=== PATIENT | female | born 1980 | race Caucasian/White ===

== ENCOUNTER → 2016-06-11 | Outpatient (CLI) | payer SELFPAY ==
--- NOTE | 2016-06-11 19:52 | DI ---
XR WRIST COMPLETE MIN 3VW,06/11/2016 11:48 AM: Clinical History: Pain in the left. Previous Exam: None at this facility. Findings: 3 views of the left wrist are obtained, and demonstrate anatomic alignment without fractures. The maria ines rounding soft tissues are unremarkable. Impression: Normal left hand and wrist.
== END ==
LOC: RAD 11:40
PROVIDERS: ATTEND Obstetrics & Gynecology Gynecology
DX: M79.645 Pain in left finger(s) (principal)
CPT/HCPCS: 73110

== ENCOUNTER 2016-08-28 15:55 | Emergency (ER) | payer SELFPAY ==
[2016-08-28 16:59] LABS: BLOOD UREA NITROGEN 6 mg/dL (7-22); CALCIUM 9.7 mg/dL (8.7-10.7); EST GLOMERULAR FILTRATION > 60 (>60 ml/min/1.73m(2)); SERUM ALBUMIN 4.4 g/dL (3.5-4.8)
[2016-08-28 17:02] LABS: BASOPHILS # (AUTO) 0.04 10*3/UL; BASOPHILS % (AUTO) 0.5 % (0-1); EOSINOPHILS % (AUTO) 1.1 % (0-8); HEMATOCRIT 48.9 % (37.0-47.0); HEMOGLOBIN 16.8 g/dL (12.0-16.0); LYMPHOCYTES # (AUTO) 2.06 10*3/uL; MEAN CORPUSCULAR HEMOGLOBIN 33.5 PG (27-31); MEAN CORPUSCULAR HGB CONC 34.4 g/dL (33-37); MEAN CORPUSCULAR VOLUME 97.4 FL (81-99); MEAN PLATELET VOLUME 10.4 FL (7.4-12.2); MONOCYTES # (AUTO) 0.94 10*3/UL (0.3-0.8); MONOCYTES % (AUTO) 10.6 % (5-15); NEUTROPHILS % (AUTO) 64.3 % (50-80); RED BLOOD COUNT 5.02 10^6/uL (4.20-5.40)
[2016-08-28 17:17] LABS: SALICYLATE < 1.0 mg/dl (0-20)
[2016-08-28 17:21] LABS: PLATELET MORPHOLOGY COMMENT NORMAL MORPHOLOGY (NORM); RBC MORPHOLOGY COMMENT NORMAL MORPHOLOGY (NORM); WBC MORPHOLOGY COMMENT NORMAL MORPHOLOGY (NORM)
[2016-08-28 17:24] LABS: BILIRUBIN,URINE NEGATIVE (NEG); COLOR,URINE YELLOW; GLUCOSE, URINE (UA) NEGATIVE (NEG); NITRATE,URINE NEGATIVE (NEG); OCCULT BLOOD,URINE NEGATIVE (NEG); PROTEIN,URINE NEGATIVE (NEG); UROBILINOGEN,URINE 0.2 EU/dL (0.2)
[2016-08-28 17:27] LABS: CLARITY,URINE CLEAR (CLEAR); URINE SAMPLE TYPE CLEAN CATCH URINE; URINE SPECIFIC GRAVITY - MAN 1.003
[2016-08-28 17:33] LABS: HCG,QUANTITATIVE < 2.39 mIU/ML
[2016-08-28 17:35] LABS: AMPHETAMINE SCREEN NEGATIVE (NEG); CANNABINOID SCREEN,URINE POSITIVE (NEG); COCAINE SCREEN NEGATIVE (NEG); METHADONE URINE SCREEN NEGATIVE (NEG); METHAMPHETAMINES SCREEN,URINE NEGATIVE (NEG); OPIATE SCREEN,URINE NEGATIVE (NEG)
--- NOTE | 2016-08-28 17:37 | PDOC ---
Psych/Suicidal/OD HPI - General Chief Complaint: Suicidal Ideation / Attempt Stated Complaint: suicidal ideation Date Seen by Provider: 08/28/16 Time Seen by Provider: 16:15 Source: POSITIVE: Patient, RN/MD ([facility] counselor) Exam Limitations: POSITIVE: No limitations Nurse's Notes Reviewed & Considered: Yes - History of Present Illness Initial Comments: The patient is a 36-year-old female who is brought to the emergency room in the custody of a mounted police officer and is also accompanied by her counselor at [facility]. The patient states that she has lately been very "fearful" . She moved out of her residence and moved in with her parents because she did not feel safe living in her own house; she cannot exactly clear identify the source of her fever. She states she has been feeling progressively suicidal for the past 2 weeks. She states that she had considered driving her car off [place]. She was seen by her counselor at [facility]. Counselor called the police and the police brought the patient here to the emergency room. The counselor also accompanied the patient. Patient has a history of severe anxiety , depression and suicidal ideation. She was taking clonazepam 1 mg 3 times daily and sertraline 50 mg daily, but she discontinued this medication several days ago. She states that she has in the past abused marijuana, methamphetamine and mushrooms. She states that she has smoked these illegal substances but has not injected them intravenously. She denies any danielito hallucinations. Timing: REPORTS: Gradual, Getting Worse Duration: >1 week (2-3 weeks) Severity: Moderate Quality: REPORTS: Other (Patient denies any pain anywhere) Intent: REPORTS: Suicide, Prior Suicidal Thoughts Context: REPORTS: Other (Isolation) Associated Symptoms: REPORTS: Depressed, Suicidal Thoughts, Specific Plan (She has considered driving her car off [place]) Arrived By: REPORTS: Police Similar Symptoms Previously: Yes Recent Care Received: REPORTS: Denies Any Prior Injuries Related to Current Complaint?: No - Patient Home Medications Home Medications: Home Medications Medication Instructions Recorded Confirmed Clonazepam 1 mg PO TID 08/28/16 08/28/16 Sertraline HCl 50 mg PO DAILY 08/28/16 08/28/16 - Patient Allergies Allergies/Adverse Reactions: Allergies Allergy/AdvReac Type Severity Reaction Status Date / Time erythromycin base Allergy Intermediate SWELLING Verified 08/28/16 16:06 [Erythromycin Base] Past Medical History - heen HEENT History: Denies History Cardiovascular History: Denies History Respiratory History: Denies History Gastrointestinal History: Denies History Genitourinary History: Denies History Endocrine History: Denies History Musculoskeletal History: Denies History Prosthesis or Implant: No Neurological History: Denies History Blood Disorders: Denies History Psychiatric History: Depression History of Sexually Transmitted Diseases: No Female Reproductive History: Denies History LMP: last week Obstetrical History: Denies History Cancer History: Denies History In Past Year Been Physically Harmed or Verbally Threatened: No History of MDRO: No History of Other Communicable Diseases: No Tobacco Use: Current Every Day Smoker Alcohol Use: Heavy Substance Use Type: Heroin, Marijuana Previous Surgical History: No Anesthesia Reactions: No Malignant Hyperthermia: No Significant Family History: No pertinent family hx Past Medical History Reviewed: Reviewed - No Changes ROS - Limitations ROS Limitations: No Limitations Constitution: REPORTS: Denies Symptoms Cardiovascular: REPORTS: Denies Cardiac Symptoms Respiratory: REPORTS: Denies Resp Symptoms Neurological: REPORTS: Denies Neuro Symptoms Gastrointestinal: REPORTS: Denies GI Symptoms Endocrine: REPORTS: Denies Symptoms Musculoskeletal: REPORTS: Denies MS Symptoms Genitourinary: REPORTS: Denies Symptoms Eyes: REPORTS: Denies Symptoms ENT: REPORTS: Denies Symptoms Skin: REPORTS: Denies Skin Symptoms Lympathic: REPORTS: Denies Lympathic Symptoms Immunologic: POSITIVE: Denies Symptoms Psychiatric: POSITIVE: Depression, Suicidal Thoughts Psych/Suicidal/OD Exam - General Appearance General Appearance: POSITIVE: No Acute Distress, Alert - HEENT HEENT: POSITIVE: Head Inspection Nml, Eyes Inspection Nml, Ears Inspection Nml, Nose Inspection Nml, Oral/Dental Inspect. Nml, Pharynx Inspect. Nml, PERRL, EOMI - Pupil Size Pupil Size: 3 mm: Bilateral (PERRLA) - Neurological/Psychological Mental Status: POSITIVE: Depressed Affect, Suicidal Ideations Orientation: POSITIVE: Oriented x3 Cranial Nerves: POSITIVE: activities concierge Intact as Tested Sensory/Motor: POSITIVE: Normal Motor Response, Normal Sensory Response, Normal Reflexes, Normal Gait When asked, pt ADMITS continued consideration of suicide:: Yes - Neck/Back Neck/Back: POSITIVE: Normal Inspection, Supple - Respiratory Respiratory: POSITIVE: No Respiratory Distress, Breath Sounds Normal - CVS Cardiovascular: POSITIVE: Regular Rate and Rhythm, Heart Sounds Normal, Equal Pulses, Strong Pulses Peripheral Pulses: Radial (R): 2+, Radial (L): 2+ - Abdomen Abdomen: Soft: (All Quadrants), Normal Bowel Sounds: (All Quadrants), Denies Tenderness: (All Quadrants), No Splenomegaly: (All Quadrants), No Hepatomegaly: (All Quadrants), No Guarding: (All Quadrants), No Rebound: (All Quadrants), No Palpable Pulse: (All Quadrants), No Palpabale Mass: (All Quadrants), No Distention: (All Quadrants), No Rigidity: (All Quadrants) - Skin Skin: POSITIVE: Intact, Normal For Race, Warm, Dry, No Rash - Extremities Extremity: Non-Tender: (All Extremities), Normal ROM: (All Extremities), Normal Inspection: (All Extremities) Psych/Suicidal/OD Progress - Results Reviewed by me Lab Results Reviewed: Yes (all normal) Lab Results:: Laboratory Results 08/28/16 08/28/16 Range/Units 16:35 16:55 WBC 8.86 (4.8-10.8) 10^3/uL RBC 5.02 (4.20-5.40) 10^6/uL Hgb 16.8 H (12.0-16.0) g/dL Hct 48.9 H (37.0-47.0) % MCV 97.4 (81-99) FL MCH 33.5 H (27-31) PG MCHC 34.4 (33-37) g/dL RDW Std Deviation 49.8 (39-50) fL RDW Coeff of Jose 14.0 (11.5-14.5) % Plt Count 295 (140-350) 10*3/uL MPV 10.4 (7.4-12.2) FL Immature Gran % (Auto) 0.2 (0-5) % Neut % (Auto) 64.3 (50-80) % Lymph % (Auto) 23.3 (10-50) % [place] % (Auto) 10.6 (5-15) % Eos % (Auto) 1.1 (0-8) % Baso % (Auto) 0.5 (0-1) % Immature Gran # (Auto) 0.02 10*3/UL Neut # (Auto) 5.70 10*3/UL Lymph # (Auto) 2.06 10*3/uL [place] # (Auto) 0.94 H (0.3-0.8) 10*3/UL Eos # (Auto) 0.10 10*3/UL Baso # (Auto) 0.04 10*3/UL WBC Morphology Comment Normal morphology (NORM) Plt Morphology Comment Normal morphology (NORM) RBC Morph Comment Normal morphology (NORM) Sodium 140 (135-145) meq/L Potassium 3.5 L (3.8-5.2) meq/L Chloride 105 (98-112) meq/L Carbon Dioxide 21 L (23-33) meq/L Anion Gap 14 (5-20) BUN 6 L (7-22) mg/dL Creatinine 0.5 (0.50-1.20) mg/dL Estimated GFR > 60 (>60 ml/min/1.73m(2)) BUN/Creatinine Ratio 12.00 (6-20) Glucose 113 H (78-110) mg/dL Calculated Osmolality 288.0 (267-292) mOsm/kg Calcium 9.7 (8.7-10.7) mg/dL Total Bilirubin 0.6 (0.3-1.2) mg/dL AST 15 (8-39) IU/L ALT 23 (9-52) IU/L Alkaline Phosphatase 82 (38-126) IU/L Total Protein 7.2 (6.1-8.0) g/dL Albumin 4.4 (3.5-4.8) g/dL Globulin 2.8 (2.50-4.10) g/dL Albumin/Globulin Ratio 1.50 (1.3-2.0) mg/g Ur Collection Type Clean catch urine Urine Color Yellow Urine Clarity Clear (CLEAR) Urine pH 6.0 (5.0-8.5) Ur Specific [place] <=1.005 (1.005-1.030) U Specif Grav (Refrac) 1.003 Urine Protein Negative (NEG) mg/dl Urine Glucose (UA) Negative (NEG) mg/dL Urine Ketones 15 (NEG) Urine Occult Blood Negative (NEG) Urine Nitrate Negative (NEG) Urine Bilirubin Negative (NEG) Urine Urobilinogen 0.2 (0.2) EU/dL Ur Leukocyte Esterase Negative (NEG) Ur Culture Indicated? Culture not set Salicylates < 1.0 (0-20) mg/dl Urine Opiates Screen Pending Ur Buprenorphine Pending Ur Oxycodone Screen Pending Urine Methadone Screen Pending Ur Propoxyphene Screen Pending Acetaminophen < 10.0 (0-30) ug/mL Barbiturate Screen Pending U Tricyclic Antidepress Pending Phencyclidine Screen Pending Amphetamines Screen Pending U Methamphetamines Scrn Pending Benzodiazepines Screen Pending Cocaine Screen Pending U Marijuana (THC) Screen Pending Serum Alcohol < 10 (0-10) mg/dL - Patient's Progress Pain Medication Addressed: POSITIVE: Not Applicable School/Work Release Addressed: POSITIVE: Not Applicable Re-Examine Time: 17:30 Status: POSITIVE: Unchanged, Re-Examined Poison Control Notification (name of person in comment): No - Medical Clearance for Psych Referral Toxic Causes: NEGATIVE: PCP, Amphetamines, Hallucinogens, Acetaminophen, ASA, ETOH, Other Toxic Ingestion, Other Infectious Causes: NEGATIVE: Meningitis, Encephalitis, Sepsis, Other Metabolic Causes: NEGATIVE: Thyroid, Hypoglycemia, Drug Withdrawal, Hypoxemia, Electrolytes, Other Neurological/Vascular Causes: NEGATIVE: CVA, TIA, Seizure, Trauma, Other Cleared medically for psychiatric referral: Yes - Consult Consult (If Yes, Name of Consulting MD & Time Called): Yes (WBI) Consulting MD will see pt:: POSITIVE: Recommended Transfer Counseled: POSITIVE: Patient, Family (Sister), RE: Lab Results, RE: DX, RE: Need for F/U Patient Care Time - Estimated PCT Patient Care Time (In Minutes): 40 Vital Signs - Recent Vital Signs Vital Signs: Blood pressure 124/93, heart rate 58, respiratory rate 18, temperature 97.4F, oxygen saturation on room air 91%. - VS Reviewed Vital Signs Reviewed: Yes Discharge Clinical Impression: Feeling suicidal Discharge Disposition: Transferred to Psychiatric Facility ([facility]) Condition: Fair Date Decision to Transfer to Another Facility: 08/28/16 Time Decision to Transfer to Another Facility: 17:30
[2016-08-28 17:52] VITALS: RESP 16; TEMP 97.4
== END 2016-08-28 17:59 ==
LOC: ER 15:55
DX: R45.851 Suicidal ideations (principal)
CPT/HCPCS: 80053; 80305; 80320; 80329; 81003; 84443; 84702; 85025; 90791; 99283